=== PATIENT | male | born 1955 | race African-American/Black ===

== ENCOUNTER 2018-08-09 11:13 | Emergency (ER) | payer SELFPAY ==
[~2018-08-09] VITALS: Ht 175.3 cm; Wt 72.7 kg
[2018-08-09 11:15] VITALS: BP 146/97
[2018-08-09 12:29] LABS: GLUCOSE,POINT OF CARE 85 MG/DL (70-110)
== END 2018-08-09 14:53 | disposition home or self-care (01) ==
LOC: EMS 11:15
DX: F60.9 Personality disorder, unspecified (principal); F10.129 Alcohol abuse with intoxication, unspecified; F11.90 Opioid use, unspecified, uncomplicated; F12.90 Cannabis use, unspecified, uncomplicated; F15.90 Other stimulant use, unspecified, uncomplicated; F17.210 Nicotine dependence, cigarettes, uncomplicated; Y90.0 Blood alcohol level of less than 20 mg/100 ml
CPT/HCPCS: 36415; 82962; 99283; G0480; 82948